=== PATIENT | female | born 1970 | race Caucasian/White ===

== ENCOUNTER 2019-03-17 07:29 | Inpatient (IN) | payer MEDICAID ==
[2019-03-15 11:46] LABS: BASOPHILS % (AUTO) 0.6 % (0-1); EOSINOPHILS # (AUTO) 0.2 X10'3 (0-0.9); EOSINOPHILS % (AUTO) 3.1 % (0-6); LYMPHOCYTES # (AUTO) 2.3 X10'3 (1.1-4.8); LYMPHOCYTES % (AUTO) 34.4 % (21-51); MEAN CORPUSCULAR HEMOGLOBIN 31.6 PG (27.0-31.0); MEAN CORPUSCULAR HGB CONC 34.2 g/dL (33.0-36.5); MEAN CORPUSCULAR VOLUME 92.4 FL (78-98); MEAN PLATELET VOLUME 7.8 FL (7.4-10.4); MONOCYTES # (AUTO) 0.4 X10'3 (0-0.9); MONOCYTES % (AUTO) 6.1 % (2-12); NEUTROPHILS # (AUTO) 3.7 X10'3 (1.8-7.7); NEUTROPHILS % (AUTO) 55.8 % (42-75); PRE OP HEMATOCRIT 37.5 % (35.0-45.0); PRE OP HEMOGLOBIN 12.8 g/dL (12.0-16.0); PRE OP PLATELET COUNT 312 X10'3 (140-440); RED BLOOD COUNT 4.06 X10'6 (4.20-5.60); RED CELL DISTRIBUTION WIDTH 12.5 % (11.5-14.5)
[2019-03-15 11:54] LABS: ALBUMIN 3.5 G/DL (3.4-5.0); ALKALINE PHOSPHATASE 76 IU/L (46-116); BLOOD UREA NITROGEN 16 MG/DL (7-18); BUN/CREATININE RATIO 24.6 (6.6-38.0); CALCIUM 9.1 MG/DL (8.5-10.1); CHLORIDE 107 MMOL/L (99-107); CREATININE 0.65 MG/DL (0.40-0.90); PRE OP ALT 35 U/L (30-65); PRE OP ANION GAP 9 (8-16); PRE OP AST 18 U/L (10-37); PRE OP BILIRUB, TOTAL 0.2 MG/DL (0.0-1.0); PRE OP GLUCOSE 114 MG/DL (70-104); PRE OP POTASSIUM 4.4 MMOL/L (3.4-5.1); PRE OP SODIUM 142 MMOL/L (135-145); TOTAL CARBON DIOXIDE 25.8 MMOL/L (24-32); eGFR > 90 ML/MIN
[2019-03-15 12:07] LABS: CLARITY,URINE SLIGHTLY CLOUDY (Clear); COLOR,URINE YELLOW (Yellow); GLUCOSE, URINE NEGATIVE (Neg); KETONES,URINE NEGATIVE (Neg); LEUKOCYTE ESTERASE ,URINE TRACE (Neg); NITRITES, URINE NEGATIVE (Neg); OCCULT BLOOD,URINE NEGATIVE (Neg); PH,URINE 5.5 (4.8-8.0); PROTEIN,URINE NEGATIVE (Neg); UROBILINOGEN,URINE 0.2 E.U/dL (0.2-1.0)
[2019-03-15 12:09] LABS: UA COLLECTION TYPE CLN CATCH MIDSTREAM
[2019-03-15 12:18] LABS: MUCUS STRANDS MANY /LPF (Neg); RBC,URINE NONE SEEN /HPF (0-2); SQUAMOUS EPITHELIAL CELL,UR MANY /LPF (FEW); WBC,URINE 0-4 /HPF (0-4)
[2019-03-15 12:19] LABS: BACTERIA,URINE 1+ /HPF (Neg)
[2019-03-17] VITALS (18 sets, daily range): BP systolic 108–158; BP diastolic 59–88
[~2019-03-17] VITALS: Ht 154.9 cm; Wt 90.7 kg
[~2019-03-17 07:29] MED LIST: ATEN-169 PO; DOCUMENT DATE & TIME OF BETA-BLOCKER PO ONE; HYDR-4383 PO
[2019-03-17] MEDS ORDERED: ringers solution, lacted 1,000 ML IV SCH ×2 (09:30→12:10)
[2019-03-17] MEDS ORDERED: famotidine 20mg tablet PO ONE (09:30)
[2019-03-17] MEDS ORDERED: clindamycin 600mg/D5W 50ml 50 ML IV ONE (09:30)
[2019-03-17] MEDS ORDERED: levoFLOXACIN-Levaquin 500mg/D5 100 ML IV ONE (09:30)
[2019-03-17] MEDS ORDERED: ceFAZolin 1000mg inj ONE (09:41)
[2019-03-17] MEDS ORDERED: albuterol 2.5 MG/3 ML nebule NEB ONE (10:00)
[2019-03-17] MEDS ORDERED: BUPIVACAINE liposomal/PF 13.3 MG/ML vial IM ONE (10:08)
[2019-03-17] MEDS ORDERED: BUPIVAcaine/PF 2.5 mg/ml (0.25%) 30ml vial ONE (10:08)
[2019-03-17] MEDS ORDERED: midazolam 2 mg/2 ml injection ONE (10:12)
[2019-03-17] MEDS ORDERED: fentaNYL /PF 50mcg/ml 5ml ampule ONE (10:12)
[2019-03-17] MEDS ORDERED: sevoflurane 250ml liquid IH ONE (10:16)
[2019-03-17] MEDS ORDERED: clindamycin phosphate 150mg/ml inj. ONE (10:32)
[2019-03-17] MEDS ORDERED: gentamicin 40 MG/1 ML inj ONE (10:58)
[2019-03-17] MEDS ORDERED: gentamicin inj 450 MG in normal saline 100ml IV soln 88.75 ML IV ONE (11:00)
[2019-03-17] MEDS ORDERED: dexamethasone sod phosphate 4mg/ml inj. ONE (11:46)
[2019-03-17] MEDS ORDERED: LIDOcaine 1%/PF 5ML 10 MG/ML VIAL ONE (11:46)
[2019-03-17] MEDS ORDERED: hydrALAZINE 20mg/ml inj. IV ONE (11:46)
[2019-03-17] MEDS ORDERED: glycopyrrolate 0.2mg/ml inj ONE (11:46)
[2019-03-17] MEDS ORDERED: propofol inj 20 ML IV ONE (11:46)
[2019-03-17] MEDS ORDERED: rocuronium 10mg/ml inj IV ONE (11:46)
[2019-03-17] MEDS ORDERED: ePHEDrine 50MG/ML INJ. ONE (11:46)
[2019-03-17] MEDS ORDERED: ondansetron/PF 4mg/2ml inj ONE (11:46)
[2019-03-17] MEDS ORDERED: neostigmine methylsulfate 1 MG/ML 10ml vial ONE (11:46)
[2019-03-17] MEDS ORDERED: labetalol 20mg/4ml (5mg/ml) syringe IV ONE (11:46)
[2019-03-17] MEDS ORDERED: morphine 10mg/ml inj. ONE (11:55)
--- NOTE | 2019-03-17 12:06 | NUR ---
Received from OR via , accompanied by Anesthesiologist DR GARCIA and report given by Anesthesiolgist. PT IS AWAKE, ALERT, MOVES EXT X 4, SKIN WARM AND PINK, C/O BURNING PAIN AT SURGICAL SITE, IV TYLENOL AND DEMEROL GIVEN FOR PAIN, SCDS, BEASLEY TO GRAVITY YELLOW/CLOUDY URINE, PIV LEFT WRIST 20G LR 100ML/HR, ABD DRESSING: ISLAND DRESSING WITH SHADOW OF DRAINAGE, ABD BINDER IN PLACE.
[2019-03-17] MEDS ORDERED: proCHLORperazine 10 MG/2 ml inj IV PRN (12:10)
[2019-03-17] MEDS ORDERED: meperidine/PF 25mg/ml syringe IV PRN ×2 (12:10)
[2019-03-17] MEDS ORDERED: ondansetron/PF 4mg/2ml inj IV PRN ×2 (12:10→12:50)
[2019-03-17] MEDS ORDERED: meperidine/PF 25mg/ml syringe ONE (12:10)
[2019-03-17] MEDS ORDERED: acetaminophen 1,000mg/100ml IV 100 ML IV SCH (12:10)
[2019-03-17] MEDS ORDERED: morphine 4 MG/ML inj SYRINge IV PRN ×2 (12:10)
[2019-03-17] MEDS: meperidine/PF 25mg/ml syringe IV PRN ×2 (12:21→12:41)
[2019-03-17] MEDS: Potassium Cl inj 20 MEQ in ringers solution, lacted 1,000 ML IV SCH ×2 (12:46→17:19)
[2019-03-17] MEDS ORDERED: CADD PCA waste documentation MC PRN (12:50)
[2019-03-17] MEDS ORDERED: insulin Lispro (HumaLOG) vial - multi-dose SQ SCH (12:50)
[2019-03-17] MEDS ORDERED: dextrose ORAL solution 15 GM/59 ML bottle PO PRN ×2 (12:50)
[2019-03-17] MEDS ORDERED: MESSAGE TO PHARMACY PO ONE (12:50)
[2019-03-17] MEDS ORDERED: naloxone 0.4 mg/ml inj IV PRN (12:50)
[2019-03-17] MEDS ORDERED: dextrose 50%-water 50ml dispensing syringe IV PRN ×2 (12:50)
[2019-03-17] MEDS ORDERED: glucagon, human recombinant 1mg kit SUBCUT PRN (12:50)
--- NOTE | 2019-03-17 12:51 | NUR ---
Received report from recovery nurse Arlene SOLANO. Awaiting arrival to room 340B.
[2019-03-17] MEDS: HYDROmorphone/NS 1 mg/ml CADD 50 ML IV SCH ×6 (13:16→23:00)
[2019-03-17] MEDS ORDERED: HYDROcodone/acetaminophen 5mg/325mg tablet PO PRN (14:05)
--- NOTE | 2019-03-17 18:15 | NUR ---
Problems reprioritized. Patient report given, questions answered & plan of care reviewed with Adin SOLANO.
--- NOTE | 2019-03-17 18:16 | NUR ---
Patient in room [facility] 340. I have received report from XIOMARA Montaño and had the opportunity to ask questions and assume patient care.
[2019-03-17] MEDS: insulin glargine (Lantus) pen - multi-dose SQ SCH (21:00)
[2019-03-18] MEDS: Melatonin 3mg tablet PO PRN ×2 (00:14→21:57)
[2019-03-18 00:47] VITALS: BP 102/57
[2019-03-18] MEDS: HYDROmorphone/NS 1 mg/ml CADD 50 ML IV SCH ×12 (01:00→23:00)
[2019-03-18] MEDS: Potassium Cl inj 20 MEQ in ringers solution, lacted 1,000 ML IV SCH ×3 (01:06→21:53)
[2019-03-18 04:12] VITALS: BP 125/76
--- NOTE | 2019-03-18 06:57 | NUR ---
Problems reprioritized. Patient report given, questions answered & plan of care reviewed with XIOMARA Long.
[2019-03-18 07:00] VITALS: BP 122/78
--- NOTE | 2019-03-18 07:03 | NUR ---
Patient in room [facility] 340. I have received report from Adin SOLANO and had the opportunity to ask questions and assume patient care.
[2019-03-18] MEDS: atenolol 50mg tablet PO SCH (07:55)
[2019-03-18] MEDS: enoxaparin 40mg/0.4ml syringe SQ SCH (07:55)
[2019-03-18] MEDS: ipratropium/albuterol 3ml nebule NEB PRN (14:35)
[2019-03-18 17:19] VITALS: BP 151/88
--- NOTE | 2019-03-18 18:25 | NUR ---
Patient in room [facility] 340. I have received report from XIOMARA JAIME and had the opportunity to ask questions and assume patient care. Addendum: 03/18/19 at 2232 by Bhakti Bass RN Amended: Links added.
--- NOTE | 2019-03-18 18:38 | NUR ---
Problems reprioritized. Patient report given, questions answered & plan of care reviewed with Myesha SOLANO.
--- NOTE | 2019-03-18 18:59 | NUR ---
NO C/O SOB ENC C&DB, HAS RT TX ORDERED PRN. PT STATES HAS SLEEP APNEA AND WEARS O2 AT NOC OCC. O2 AT BEDSIDE. PT DOES NOT WEAR CPAP. Addendum: 03/18/19 at 1905 by Bhakti Bass RN Amended: Links added.
[2019-03-18 19:00] VITALS: BP 130/72
[2019-03-18] MEDS: insulin glargine (Lantus) pen - multi-dose SQ SCH (21:00)
[2019-03-19] VITALS: BP 127/76
[2019-03-19] MEDS: HYDROmorphone/NS 1 mg/ml CADD 50 ML IV SCH ×12 (01:00→23:00)
[2019-03-19] MEDS: Potassium Cl inj 20 MEQ in ringers solution, lacted 1,000 ML IV SCH ×3 (05:11→21:21)
--- NOTE | 2019-03-19 06:08 | NUR ---
Problems reprioritized. Patient report given, questions answered & plan of care reviewed with XIOMARA Long. Addendum: 03/19/19 at 0608 by Bhakti Bass RN Amended: Links added.
--- NOTE | 2019-03-19 06:12 | NUR ---
Patient in room [facility] 340. I have received report from Myesha SOLANO and had the opportunity to ask questions and assume patient care.
[2019-03-19 06:55] VITALS: BP 135/90
[2019-03-19] MEDS: enoxaparin 40mg/0.4ml syringe SQ SCH (07:21)
[2019-03-19] MEDS: atenolol 50mg tablet PO SCH (07:22)
[2019-03-19 11:00] VITALS: BP 136/83
--- NOTE | 2019-03-19 16:52 | NUR ---
patient up and about walking many laps, stacy c/o pain Dressing changed site observed clean and dry with nikolas intact. Abdominal binder reapplied. will continue to monitor.
[2019-03-19 18:00] VITALS: BP 146/80
--- NOTE | 2019-03-19 18:08 | NUR ---
Problems reprioritized. Patient report given, questions answered & plan of care reviewed with Ganga SOLANO.
--- NOTE | 2019-03-19 18:30 | NUR ---
Patient in room [facility] 340. I have received report from Mercedes SOLANO and had the opportunity to ask questions and assume patient care.
[2019-03-19] MEDS: ipratropium/albuterol 3ml nebule NEB PRN (19:12)
[2019-03-19] MEDS: Melatonin 3mg tablet PO PRN (21:00)
[2019-03-19] MEDS: insulin glargine (Lantus) pen - multi-dose SQ SCH (21:00)
[2019-03-19] MEDS ORDERED: normal saline 1000ml 1,000 ML IV SCH (23:30)
[2019-03-20] VITALS: BP 122/82
[2019-03-20] MEDS: HYDROmorphone/NS 1 mg/ml CADD 50 ML IV SCH ×4 (01:00→07:00)
[2019-03-20 06:00] VITALS: BP 150/80
--- NOTE | 2019-03-20 06:30 | NUR ---
Patient in room [facility] 355. I have received report from Ganga SOLANO and had the opportunity to ask questions and assume patient care.
--- NOTE | 2019-03-20 06:57 | NUR ---
Problems reprioritized. Patient report given, questions answered & plan of care reviewed with Geovanna SOLANO.
[2019-03-20] MEDS: enoxaparin 40mg/0.4ml syringe SQ SCH (08:30)
[2019-03-20 08:31] VITALS: BP_SYST 116
[2019-03-20] MEDS: atenolol 50mg tablet PO SCH (08:31)
[2019-03-20] MEDS ORDERED: oxyCODONE/APAP 10/325mg tablet PO PRN (08:55)
[2019-03-20] MEDS ORDERED: PER10325T PO (09:00)
== END 2019-03-20 10:42 | disposition home or self-care (01) | DRG 793 ==
LOC: PAS IN 07:29 → EDSTATUS 11:30 → SUR 3N 13:44
PROVIDERS: ADMIT Surgery; ATTEND Surgery
PROC: 0WPF0JZ Removal of Synthetic Substitute from Abdominal Wall, Open Approach (ICD-10-PCS; 2019-03-17)
PROC: 0WUF0JZ Supplement Abdominal Wall with Synthetic Substitute, Open Approach (ICD-10-PCS; principal; 2019-03-17 10:12)
DX: T85.528A Displacement of other gastrointestinal prosthetic devices, implants and grafts, initial encounter (principal); K43.0 Incisional hernia with obstruction, without gangrene; E78.5 Hyperlipidemia, unspecified; I10 Essential (primary) hypertension; K66.0 Peritoneal adhesions (postprocedural) (postinfection); Y83.8 Other surgical procedures as the cause of abnormal reaction of the patient, or of later complication, without mention of misadventure at the time of the procedure; G89.29 Other chronic pain; M62.00 Separation of muscle (nontraumatic), unspecified site; Z91.030 Bee allergy status; Z85.43 Personal history of malignant neoplasm of ovary; Z90.710 Acquired absence of both cervix and uterus; Z90.49 Acquired absence of other specified parts of digestive tract; Z87.891 Personal history of nicotine dependence; Y92.89 Other specified places as the place of occurrence of the external cause
CPT/HCPCS: 36415; 80053; 81001; 82948; 83036; 85025; 87081; 93005; 94640; 94760; A4618; A6258; A7000; C1758; C9290; G0378; J0131; J0360; J0690; J1100; J1170; J1580; J1650; J1815; J1956; J2175; J2250; J2270; J2405; J2704; J2710; J3010; J3480; J3490; J7030; J7120

== ENCOUNTER 2019-07-22 10:20 | Inpatient (IN) | payer MEDICAID ==
[2019-07-22] VITALS (9 sets, daily range): BP systolic 95–133; BP diastolic 42–68
[~2019-07-22] VITALS: Ht 154.9 cm; Wt 86.4 kg
[~2019-07-22 10:20] MED LIST changes: -DOCUMENT DATE & TIME OF BETA-BLOCKER PO ONE; -HYDR-4383 PO
[2019-07-22] MEDS ORDERED: metroNIDAZOLE-Flagyl 500mg/NS 100 ML IV ONE (11:50)
[2019-07-22] MEDS ORDERED: levoFLOXACIN-Levaquin 750MG/D5 150 ML IV ONE (11:50)
[2019-07-22] MEDS ORDERED: vancomycin/NS 1 GM ADD-VANTAGE 250 ML IV ONE (11:50)
[2019-07-22] MEDS ORDERED: HYDROmorphone inj. 0.5 MG/0.5 ML DISP.SYRIN IV ONE (12:15)
[2019-07-22 12:25] LABS: BASOPHILS % (AUTO) 0.2 % (0-1); EOSINOPHILS % (AUTO) 0.2 % (0-6); HEMATOCRIT 31.5 % (35.0-45.0); HEMOGLOBIN 10.4 g/dl (12.0-16.0); LYMPHOCYTES % (AUTO) 6.7 % (21-51); MEAN CORPUSCULAR HEMOGLOBIN 29.7 PG (27.0-31.0); MEAN CORPUSCULAR VOLUME 89.9 FL (78-98); MEAN PLATELET VOLUME 7.7 FL (7.4-10.4); MONOCYTES # (AUTO) 0.7 X10'3 (0-0.9); MONOCYTES % (AUTO) 4.5 % (2-12); NEUTROPHILS # (AUTO) 12.9 X10'3 (1.8-7.7); NEUTROPHILS % (AUTO) 88.4 % (42-75); PLATELET COUNT 592 X10'3 (140-440); RED CELL DISTRIBUTION WIDTH 14.2 % (11.5-14.5); WHITE BLOOD COUNT 14.5 X10'3 (4.5-11.0)
[2019-07-22 12:28] LABS: CLARITY,URINE SLIGHTLY CLOUDY (Clear); GLUCOSE, URINE NEGATIVE (Neg); KETONES,URINE TRACE mg/dl (Neg); LEUKOCYTE ESTERASE ,URINE TRACE (Neg); NITRITES, URINE NEGATIVE (Neg); OCCULT BLOOD,URINE NEGATIVE (Neg); PH,URINE 6.5 (4.8-8.0); PROTEIN,URINE NEGATIVE (Neg); UROBILINOGEN,URINE >=8.0 E.U/dL (0.2-1.0)
[2019-07-22 12:29] LABS: COLOR,URINE DARK YELLOW (Yellow); UA COLLECTION TYPE CLN CATCH MIDSTREAM
[2019-07-22 12:42] LABS: PARTIAL THROMBOPLASTIN TIME 23 SECONDS (22-32)
[2019-07-22 12:43] LABS: ALANINE AMINOTRANSFERASE 32 U/L (12-78); ALBUMIN 1.4 G/DL (3.4-5.0); ALBUMIN/GLOBULIN RATIO 0.3 (1.1-1.5); ALKALINE PHOSPHATASE 144 IU/L (46-116); ANION GAP 10 (8-16); ASPARTATE AMINO TRANSFERASE 32 U/L (10-37); BILIRUBIN,TOTAL 0.5 MG/DL (0.1-1.0); BLOOD UREA NITROGEN 14 MG/DL (7-18); BUN/CREATININE RATIO 20.3 (6.6-38.0); CALCIUM 8.1 MG/DL (8.5-10.1); CHLORIDE 101 MMOL/L (99-107); CREATININE 0.69 MG/DL (0.40-0.90); GLUCOSE 102 MG/DL (70-104); MAGNESIUM 2.1 MG/DL (1.5-2.4); POTASSIUM 3.6 MMOL/L (3.5-5.1); SODIUM 136 MMOL/L (135-145); TOTAL CARBON DIOXIDE 25.4 MMOL/L (24-32); TOTAL PROTEIN 6.2 G/DL (6.4-8.2); eGFR 90 ML/MIN
[2019-07-22 12:44] LABS: MUCUS STRANDS FEW /LPF (Neg); SQUAMOUS EPITHELIAL CELL,UR MANY /LPF (FEW); TRANSITIONAL EPI CELLS,URINE FEW /HPF
[2019-07-22 12:45] LABS: BACTERIA,URINE 1+ /HPF (Neg); RBC,URINE 0-2 /HPF (0-2); WBC,URINE 0-4 /HPF (0-4); YEAST FEW /HPF (NEGATIVE)
[2019-07-22 13:01] LABS: PLATELET ESTIMATE INCREASED; TOTAL CELLS COUNTED 100; TOXIC GRANULATION 1+
[2019-07-22 13:02] LABS: LARGE PLATELETS FEW
[2019-07-22] MEDS ORDERED: FURO40TA4 PO (13:24)
[2019-07-22] MEDS ORDERED: ATEN100T6 PO (13:24)
[2019-07-22] MEDS ORDERED: POTA20TA19 PO (13:24)
[2019-07-22] MEDS ORDERED: MULT-933 PO (13:34)
[2019-07-22] MEDS ORDERED: CYAN-51 PO (13:34)
[2019-07-22] MEDS ORDERED: magnesium hydroxide 30ml (MOM) UD suspension PO PRN (14:10)
[2019-07-22] MEDS ORDERED: ondansetron/PF 4mg/2ml inj IV PRN ×2 (14:10→18:50)
[2019-07-22] MEDS ORDERED: acetaminophen 325mg tablet PO PRN (14:10)
[2019-07-22] MEDS ORDERED: HYDROcodone/acetaminophen 10/325mg tab PO PRN (14:10)
[2019-07-22] MEDS ORDERED: iohexol 300mg/ml 100ml inj. ONE (14:59)
[2019-07-22] MEDS: HYDROmorphone inj. 0.5 MG/0.5 ML DISP.SYRIN IV PRN ×3 (17:01→21:58)
[2019-07-22] MEDS: normal saline 1000ml 1,000 ML IV SCH (17:01)
--- NOTE | 2019-07-22 18:30 | NUR ---
Patient in room [facility] 341. I have received report from Tex RN and Geovanna RN and had the opportunity to ask questions and assume patient care.
[2019-07-22] MEDS ORDERED: ringers solution, lacted 1,000 ML IV SCH (18:48)
[2019-07-22] MEDS ORDERED: meperidine/PF 25mg/ml syringe IV PRN ×3 (18:50)
[2019-07-22] MEDS ORDERED: morphine 4 MG/ML inj SYRINge IV PRN ×2 (18:50)
[2019-07-22] MEDS ORDERED: proCHLORperazine 10 MG/2 ml inj IV PRN (18:50)
[2019-07-22] MEDS ORDERED: sevoflurane 250ml liquid IH ONE (18:57)
[2019-07-22] MEDS ORDERED: fentaNYL /PF 50mcg/ml 5ml ampule ONE (19:01)
[2019-07-22] MEDS ORDERED: midazolam 2 mg/2 ml injection ONE (19:01)
--- NOTE | 2019-07-22 19:08 | NUR ---
Problems reprioritized. Patient report given, questions answered & plan of care reviewed with XIOMARA العلي.
[2019-07-22] MEDS ORDERED: furosemide 40mg tablet PO PRN (19:35)
[2019-07-22] MEDS ORDERED: potassium Cl 20 mEq SR tablet PO PRN (19:35)
[2019-07-22] MEDS ORDERED: rocuronium 10mg/ml inj IV ONE (19:51)
[2019-07-22] MEDS ORDERED: ondansetron/PF 4mg/2ml inj ONE (19:51)
[2019-07-22] MEDS ORDERED: sugammadex 200mg/2ml injection IV ONE (19:51)
[2019-07-22] MEDS ORDERED: LIDOcaine 2% (20mg/ml) 5ml vial ONE (19:51)
[2019-07-22] MEDS ORDERED: propofol inj 20 ML IV ONE (19:51)
[2019-07-22] MEDS ORDERED: cefepime 2g/NS 100ml ADVANTAGE 100 ML IV SCH (20:00)
[2019-07-22] MEDS: heparin, porcine 5000 units/ml vial SQ SCH (20:00)
--- NOTE | 2019-07-22 20:28 | NUR ---
Received from OR via BED, accompanied by Anesthesiologist DR GARCIA and report given by Anesthesiologist. PT AWAKE, PAINFUL, ABDOMEN W/WOUND VAC X 2 125MMHG LCS, NO DRAINAGE IN TUBING, BEASLEY CATHETER TO GRAVITY DRAINAGE W/DARK YELLOW URINE IN TUBING. Addendum: 07/22/19 at 2036 by Concepción Morfin RN Amended: Links added.
[2019-07-22] MEDS ORDERED: ipratropium/albuterol 3ml nebule NEB PRN (20:35)
[2019-07-22] MEDS ORDERED: ipratropium/albuterol 3ml nebule ONE (20:41)
[2019-07-22] MEDS: HYDROmorphone/NS 1 mg/ml CADD 50 ML IV SCH ×3 (20:57→23:00)
[2019-07-22] MEDS: VANCOmycin 1250MG/NS 250ml Bag 250 ML IV SCH (21:00)
--- NOTE | 2019-07-22 21:08 | NUR ---
Report called to receiving nurse. Transferred via BED ON CM, PT HAD NO Belongings, RECEIVING RN AT BEDSIDE TO RECEIVE PT, ATTACHED TO MONITOR. Special Issues communicated to receiving nurse. YES, Addendum: 07/22/19 at 2117 by Concepción Morfin RN Amended: Links added.
--- NOTE | 2019-07-22 21:17 | NUR ---
assumed care from catalyst recovery operator Jane no questions or concerns after assuming care
--- NOTE | 2019-07-22 21:18 | NUR ---
patient arrived to cicu bed 2006 at 2103 from Concepción SOLANO
[2019-07-22] MEDS: metroNIDAZOLE 500mg tablet PO SCH (21:59)
--- NOTE | 2019-07-22 22:37 | NUR ---
patient in bed covers on eyes closed rr even un labored no observable s/s of acute stress at this time will continue to monitor
[2019-07-23] VITALS (12 sets, daily range): BP systolic 92–109; BP diastolic 44–58
[2019-07-23] MEDS: normal saline 1000ml 1,000 ML IV SCH ×2 (00:25→13:04)
--- NOTE | 2019-07-23 00:29 | NUR ---
patient in bed covers on rr even un labored no observable s/s of acute stress at this time will continue to monitor
[2019-07-23] MEDS: HYDROmorphone/NS 1 mg/ml CADD 50 ML IV SCH ×9 (01:00→17:00)
[2019-07-23] MEDS: clindamycin 600mg/D5W 50ml 50 ML IV SCH ×4 (02:01→19:41)
--- NOTE | 2019-07-23 02:23 | NUR ---
patient in bed eyes closed rr even un labored no observable s/s of acute stress at this time will continue to monitor
--- NOTE | 2019-07-23 03:53 | NUR ---
patient requested me to call her Wallace # [phone], i was able to speak with Wallace and he verbalized he will be in "around 8 o'clock." verbalized this to the patient
[2019-07-23] MEDS: VANCOmycin 1250MG/NS 250ml Bag 250 ML IV SCH ×3 (05:14→20:18)
[2019-07-23 06:18] LABS: ANION GAP 11 (8-16); BLOOD UREA NITROGEN 11 MG/DL (7-18); BUN/CREATININE RATIO 19.6 (6.6-38.0); CALCIUM 7.6 MG/DL (8.5-10.1); CHLORIDE 106 MMOL/L (99-107); CREATININE 0.56 MG/DL (0.40-0.90); GLUCOSE 110 MG/DL (70-104); POTASSIUM 3.9 MMOL/L (3.5-5.1); SODIUM 138 MMOL/L (135-145); TOTAL CARBON DIOXIDE 20.7 MMOL/L (24-32); eGFR > 90 ML/MIN
--- NOTE | 2019-07-23 06:20 | NUR ---
SBAR TO RAPHAEL SOLANO NO QUESTIONS OR CONCERNS AFTER ASSUMING CARE
[2019-07-23 06:25] LABS: BASOPHILS % (AUTO) 0.2 % (0-1); EOSINOPHILS % (AUTO) 0 % (0-6); HEMATOCRIT 27.7 % (35.0-45.0); HEMOGLOBIN 9.5 g/dl (12.0-16.0); LYMPHOCYTES # (AUTO) 0.8 X10'3 (1.1-4.8); LYMPHOCYTES % (AUTO) 7.3 % (21-51); MEAN CORPUSCULAR HEMOGLOBIN 30.3 PG (27.0-31.0); MEAN CORPUSCULAR HGB CONC 34.1 g/dL (33.0-36.5); MEAN CORPUSCULAR VOLUME 88.9 FL (78-98); MEAN PLATELET VOLUME 8.1 FL (7.4-10.4); MONOCYTES # (AUTO) 0.5 X10'3 (0-0.9); MONOCYTES % (AUTO) 4.6 % (2-12); NEUTROPHILS # (AUTO) 9.3 X10'3 (1.8-7.7); NEUTROPHILS % (AUTO) 87.9 % (42-75); PLATELET COUNT 530 X10'3 (140-440); RED BLOOD COUNT 3.12 X10'6 (4.20-5.60); RED CELL DISTRIBUTION WIDTH 14.2 % (11.5-14.5); WHITE BLOOD COUNT 10.6 X10'3 (4.5-11.0)
--- NOTE | 2019-07-23 06:30 | NUR ---
Patient in room CICU 2006. I have received report from Kartik Andrade RN and had the opportunity to ask questions and assume patient care.
[2019-07-23] MEDS: atenolol 50mg tablet PO SCH (08:40)
[2019-07-23] MEDS: multivitamins, therapeutics tablet PO SCH (08:40)
[2019-07-23] MEDS: metroNIDAZOLE 500mg tablet PO SCH ×3 (08:40→22:27)
[2019-07-23] MEDS: cyanocobalamin 500mcg tablet PO SCH (08:40)
[2019-07-23] MEDS: heparin, porcine 5000 units/ml vial SQ SCH ×2 (08:41→19:45)
[2019-07-23] MEDS: mag hydrox/Alum hydrox/simeth 30ml oral suspension PO PRN ×2 (08:51→14:47)
[2019-07-23] MEDS: levoFLOXACIN-Levaquin 750MG/D5 150 ML IV SCH (09:29)
--- NOTE | 2019-07-23 10:00 | NUR ---
Upon reviewing the belongings for patient, patient states she cut off her pants and shirt and threw them away along with her slippers. I asked her about other belongings and she states that she only has a red sweatshirt and cell phone. Searched all drawers in room. Attempted to contact , Wallace, regarding note stating patient had her wallet. Left a message. Patient denies having wallet/purse.
--- NOTE | 2019-07-23 10:02 | NUR ---
Attempted to call report on patient. Spoke with Swathi, flame annealing machine setter. She has not assigned a nurse and will get back to me when she does.
--- NOTE | 2019-07-23 10:18 | NUR ---
Report given Alesia Mchugh.
--- NOTE | 2019-07-23 10:33 | NUR ---
Patient transferred to room 349B. Alesia Land RN present. Patient offers no complaints.
[2019-07-23] MEDS: HYDROmorphone inj. 0.5 MG/0.5 ML DISP.SYRIN IV PRN (11:09)
[2019-07-23] MEDS ORDERED: VANCOMYCIN LEVEL IV ONE ×2 (11:30→19:30)
--- NOTE | 2019-07-23 11:46 | NUR ---
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 Hx recurrent hernia's, gastric bypass, and smoking. Is receiving MVI and B12. Placed on clear liquids post-op refusing first meal today w/ abdominal pain noted. LBM 07/21. Will monitor for additional protein needs and PO diet tolerance as diet advances post-op. Rec: 1. advance diet per MD to regular 2. monitor for ONS needs as PO diet advances 3. bowel care as needed 4. MVI/B12 w/ gastric bypass surgery hx; consider sublingual B12 IF jamin-en--y per MD 5. wt per rx Addendum: 07/23/19 at [address] Amended: Links added.
--- NOTE | 2019-07-23 11:46 | NUR ---
Spoke to Carla in wound care she does have patient on wound care list and they will make her a priority on Friday to change wound vac.
--- NOTE | 2019-07-23 12:04 | NUR ---
Per Dr Crooks ok to have wound vac changed on Friday it was just put on at around 2300 last night.
--- NOTE | 2019-07-23 14:30 | NUR ---
WOUND VAC EDUCATION PROVIDED BY WOUND CARE 1. Patient instructed to call the Wound Center or their Home Health Agency immediately if: * They notice a change in the color or amount of the fluid in the canister. * Their wound looks more red than usual or has a foul smell. * The skin around their wound looks reddened or irritated. * The dressing feels loose or appears to be loose. * They experience any increase or changes in their pain. * The alarm will not turn off. 2. Patient instructed that they should not be disconnected from suction for more than 2 hours at a time. * If they are not able to get the suction back on, they need to remove the dressing and take all of the foam out of the wound. * Then moisten sterile gauze with normal saline and place on/in the wound. * Change the dressing once a day until arrangements have been made to replace the wound vac dressing. 3. Patient instructed to turn the wound vac machine OFF and call 911 or go to the ED immediately if their canister fills rapidly with blood. 4. If any of these occur while in the hospital tell a nurse immediately. Addendum: 07/23/19 at 1430 by Heladio Loyd RN Amended: Links added.
--- NOTE | 2019-07-23 18:30 | NUR ---
shift change report given by Alesia SOLANO; no c/o's of pain or request offered at this time
--- NOTE | 2019-07-23 18:48 | NUR ---
Problems reprioritized. Patient report given, questions answered & plan of care reviewed with Pat RN.
--- NOTE | 2019-07-23 19:30 | NUR ---
Dr Bloom in earlier & aware of swelling below lower abd wound vac Addendum: 07/24/19 at 0124 by Saray Laguna RN Amended: Links added.
[2019-07-23] MEDS: oxyCODONE/APAP 10/325mg tablet PO PRN (19:41)
[2019-07-23] MEDS: lactobacillus rhamnosus 10,000 MMU CELLS/CAPSULE PO SCH (19:43)
[2019-07-23] MEDS ORDERED: CADD PCA waste documentation MC SCH (20:05)
[2019-07-24] VITALS: BP 97/50
[2019-07-24] MEDS: oxyCODONE/APAP 10/325mg tablet PO PRN ×6 (00:04→23:22)
[2019-07-24] MEDS: clindamycin 600mg/D5W 50ml 50 ML IV SCH ×4 (02:03→20:45)
[2019-07-24] MEDS: VANCOmycin 1250MG/NS 250ml Bag 250 ML IV SCH (03:56)
[2019-07-24] MEDS: mag hydrox/Alum hydrox/simeth 30ml oral suspension PO PRN ×2 (04:03→17:37)
[2019-07-24 05:17] LABS: BASOPHILS % (AUTO) 0 % (0-1); EOSINOPHILS % (AUTO) 0.1 % (0-6); HEMOGLOBIN 8.2 g/dl (12.0-16.0); LYMPHOCYTES % (AUTO) 9.3 % (21-51); MEAN CORPUSCULAR HEMOGLOBIN 29.8 PG (27.0-31.0); MEAN CORPUSCULAR VOLUME 90.3 FL (78-98); MEAN PLATELET VOLUME 7.7 FL (7.4-10.4); MONOCYTES # (AUTO) 0.7 X10'3 (0-0.9); NEUTROPHILS # (AUTO) 9.5 X10'3 (1.8-7.7); NEUTROPHILS % (AUTO) 84.6 % (42-75); PLATELET COUNT 510 X10'3 (140-440); RED BLOOD COUNT 2.77 X10'6 (4.20-5.60); RED CELL DISTRIBUTION WIDTH 14.2 % (11.5-14.5); WHITE BLOOD COUNT 11.2 X10'3 (4.5-11.0)
[2019-07-24 05:32] LABS: ANION GAP 10 (8-16); BLOOD UREA NITROGEN 9 MG/DL (7-18); BUN/CREATININE RATIO 16.4 (6.6-38.0); CALCIUM 7.5 MG/DL (8.5-10.1); CHLORIDE 107 MMOL/L (99-107); CREATININE 0.55 MG/DL (0.40-0.90); GLUCOSE 107 MG/DL (70-104); POTASSIUM 3.8 MMOL/L (3.5-5.1); SODIUM 139 MMOL/L (135-145); TOTAL CARBON DIOXIDE 22.5 MMOL/L (24-32); eGFR > 90 ML/MIN
--- NOTE | 2019-07-24 06:30 | NUR ---
checked q1hr; slept at intervals with resp even and unlabored; pt reports percocet very effective in controlling pain; no further changes from earlier notes; report given to XIOMARA Ramirez
--- NOTE | 2019-07-24 06:42 | NUR ---
Problems reprioritized. Patient report given, questions answered & plan of care reviewed with XIOMARA Egan. Addendum: 07/24/19 at 0642 by James Clark RN Patient in room [facility] 349. I have received report from XIOMARA Egan and had the opportunity to ask questions and assume patient care.
[2019-07-24 07:00] VITALS: BP 119/70
[2019-07-24] MEDS: heparin, porcine 5000 units/ml vial SQ SCH ×2 (07:10→20:46)
[2019-07-24] MEDS: cyanocobalamin 500mcg tablet PO SCH (07:10)
[2019-07-24] MEDS: metroNIDAZOLE 500mg tablet PO SCH ×3 (07:10→20:46)
[2019-07-24] MEDS: lactobacillus rhamnosus 10,000 MMU CELLS/CAPSULE PO SCH ×2 (07:10→20:46)
[2019-07-24] MEDS: multivitamins, therapeutics tablet PO SCH (07:10)
[2019-07-24] MEDS: atenolol 50mg tablet PO SCH (07:11)
[2019-07-24] MEDS: levoFLOXACIN-Levaquin 750MG/D5 150 ML IV SCH (07:48)
[2019-07-24] MEDS: normal saline 1000ml 1,000 ML IV SCH ×2 (07:50→14:52)
[2019-07-24 11:00] VITALS: BP 115/4
[2019-07-24] MEDS: HYDROmorphone inj. 0.5 MG/0.5 ML DISP.SYRIN IV PRN ×3 (11:34→20:46)
--- NOTE | 2019-07-24 13:50 | NUR ---
PT DOES NOT WANT TO AMBULATE
--- NOTE | 2019-07-24 15:00 | NUR ---
Patient tolerated dc of mallory catheter well. No complaints.
[2019-07-24 18:00] VITALS: BP 116/70
--- NOTE | 2019-07-24 18:26 | NUR ---
Problems reprioritized. Patient report given, questions answered & plan of care reviewed with XIOMARA SAHA.
--- NOTE | 2019-07-24 18:37 | NUR ---
Patient in room [facility] 349. I have received report from ANNIE PEREZ RN and had the opportunity to ask questions and assume patient care. Patient is resting and shows no sign of distress.
[2019-07-25] VITALS: BP 89/45
[2019-07-25] MEDS: clindamycin 600mg/D5W 50ml 50 ML IV SCH ×4 (02:15→19:54)
[2019-07-25] MEDS: oxyCODONE/APAP 10/325mg tablet PO PRN ×4 (03:41→19:51)
[2019-07-25 04:45] LABS: ANION GAP 10 (8-16); BASOPHILS % (AUTO) 0.1 % (0-1); BLOOD UREA NITROGEN 10 MG/DL (7-18); BUN/CREATININE RATIO 16.9 (6.6-38.0); CHLORIDE 107 MMOL/L (99-107); CREATININE 0.59 MG/DL (0.40-0.90); EOSINOPHILS % (AUTO) 0.1 % (0-6); GLUCOSE 99 MG/DL (70-104); HEMATOCRIT 25.2 % (35.0-45.0); HEMOGLOBIN 8.7 g/dl (12.0-16.0); LYMPHOCYTES # (AUTO) 1.1 X10'3 (1.1-4.8); LYMPHOCYTES % (AUTO) 9.2 % (21-51); MEAN CORPUSCULAR HEMOGLOBIN 31.1 PG (27.0-31.0); MEAN CORPUSCULAR HGB CONC 34.3 g/dL (33.0-36.5); MEAN CORPUSCULAR VOLUME 90.4 FL (78-98); MEAN PLATELET VOLUME 7.6 FL (7.4-10.4); MONOCYTES # (AUTO) 0.5 X10'3 (0-0.9); MONOCYTES % (AUTO) 4.3 % (2-12); NEUTROPHILS # (AUTO) 10.8 X10'3 (1.8-7.7); NEUTROPHILS % (AUTO) 86.3 % (42-75); PLATELET COUNT 599 X10'3 (140-440); RED BLOOD COUNT 2.79 X10'6 (4.20-5.60); RED CELL DISTRIBUTION WIDTH 14.2 % (11.5-14.5); SODIUM 140 MMOL/L (135-145); TOTAL CARBON DIOXIDE 23.5 MMOL/L (24-32); WHITE BLOOD COUNT 12.5 X10'3 (4.5-11.0); eGFR > 90 ML/MIN
--- NOTE | 2019-07-25 06:32 | NUR ---
Problems reprioritized. Patient report given, questions answered & plan of care reviewed with Heena RN. Patient is resting.
[2019-07-25 06:46] VITALS: BP 121/70
[2019-07-25] MEDS: lactobacillus rhamnosus 10,000 MMU CELLS/CAPSULE PO SCH ×2 (07:10→19:51)
[2019-07-25] MEDS: multivitamins, therapeutics tablet PO SCH (07:10)
[2019-07-25] MEDS: cyanocobalamin 500mcg tablet PO SCH (07:11)
[2019-07-25] MEDS: metroNIDAZOLE 500mg tablet PO SCH ×3 (07:11→21:53)
[2019-07-25] MEDS: HYDROmorphone inj. 0.5 MG/0.5 ML DISP.SYRIN IV PRN ×4 (07:11→21:53)
[2019-07-25] MEDS: heparin, porcine 5000 units/ml vial SQ SCH ×2 (07:14→19:52)
[2019-07-25] MEDS: atenolol 50mg tablet PO SCH (07:21)
[2019-07-25] MEDS: mag hydrox/Alum hydrox/simeth 30ml oral suspension PO PRN (07:21)
[2019-07-25] MEDS: levoFLOXACIN 750MG TABLET PO SCH (11:12)
[2019-07-25] MEDS: normal saline 1000ml 1,000 ML IV SCH (11:16)
[2019-07-25 11:45] VITALS: BP 137/63
--- NOTE | 2019-07-25 18:14 | NUR ---
Problems reprioritized. Patient report given, questions answered & plan of care reviewed with Magali SOLANO.
--- NOTE | 2019-07-25 18:44 | NUR ---
Patient in room [facility] 349. I have received report from Heena SOLANO and had the opportunity to ask questions and assume patient care. Pt laying in the chair, no signs of distress. Wound Vac @ 125 and marked. O2 @ 1L via N/C. Will continue ro monitor.
[2019-07-25] MEDS ORDERED: VANCOMYCIN LEVEL IV ONE (19:30)
[2019-07-25 20:00] VITALS: BP 124/69
[2019-07-25] MEDS ORDERED: furosemide 10 MG/1 ML 10ml inj IV ONE (20:55)
[2019-07-25] MEDS: vancomycin/NS 1 GM ADD-VANTAGE 250 ML IV SCH (22:20)
[2019-07-26] VITALS: BP 108/60
[2019-07-26] MEDS: oxyCODONE/APAP 10/325mg tablet PO PRN ×5 (00:27→23:29)
[2019-07-26] MEDS: clindamycin 600mg/D5W 50ml 50 ML IV SCH ×2 (01:47→07:30)
[2019-07-26] MEDS: HYDROmorphone inj. 0.5 MG/0.5 ML DISP.SYRIN IV PRN ×5 (01:53→20:50)
[2019-07-26] MEDS: vancomycin/NS 1 GM ADD-VANTAGE 250 ML IV SCH (05:05)
--- NOTE | 2019-07-26 06:34 | NUR ---
Problems reprioritized. Patient report given, questions answered & plan of care reviewed with Heena SOLANO.
--- NOTE | 2019-07-26 06:37 | NUR ---
Patient in room [facility] 349. I have received report from Magali SOLANO and had the opportunity to ask questions and assume patient care.
[2019-07-26 07:00] VITALS: BP 115/68
[2019-07-26] MEDS: lactobacillus rhamnosus 10,000 MMU CELLS/CAPSULE PO SCH ×2 (07:30→20:47)
[2019-07-26] MEDS: multivitamins, therapeutics tablet PO SCH (07:30)
[2019-07-26] MEDS: metroNIDAZOLE 500mg tablet PO SCH (07:30)
[2019-07-26] MEDS: cyanocobalamin 500mcg tablet PO SCH (07:30)
[2019-07-26] MEDS: atenolol 50mg tablet PO SCH (07:30)
[2019-07-26] MEDS: heparin, porcine 5000 units/ml vial SQ SCH ×2 (07:32→20:56)
[2019-07-26 08:53] LABS: BASOPHILS % (AUTO) 0 % (0-1); EOSINOPHILS % (AUTO) 0.1 % (0-6); HEMATOCRIT 27.2 % (35.0-45.0); LYMPHOCYTES % (AUTO) 8.4 % (21-51); MEAN CORPUSCULAR HEMOGLOBIN 29.3 PG (27.0-31.0); MEAN CORPUSCULAR HGB CONC 33.2 g/dL (33.0-36.5); MEAN CORPUSCULAR VOLUME 88.5 FL (78-98); MEAN PLATELET VOLUME 7.5 FL (7.4-10.4); MONOCYTES # (AUTO) 0.6 X10'3 (0-0.9); MONOCYTES % (AUTO) 5.3 % (2-12); NEUTROPHILS # (AUTO) 9.9 X10'3 (1.8-7.7); NEUTROPHILS % (AUTO) 86.2 % (42-75); PLATELET COUNT 640 X10'3 (140-440); RED BLOOD COUNT 3.07 X10'6 (4.20-5.60); RED CELL DISTRIBUTION WIDTH 14.4 % (11.5-14.5); WHITE BLOOD COUNT 11.5 X10'3 (4.5-11.0)
[2019-07-26 08:56] LABS: ALBUMIN 1.2 G/DL (3.4-5.0); ANION GAP 11 (8-16); BLOOD UREA NITROGEN 8 MG/DL (7-18); BUN/CREATININE RATIO 15.1 (6.6-38.0); CALCIUM 8.3 MG/DL (8.5-10.1); CHLORIDE 107 MMOL/L (99-107); CREATININE 0.53 MG/DL (0.40-0.90); GLUCOSE 117 MG/DL (70-104); POTASSIUM 3.6 MMOL/L (3.5-5.1); SODIUM 140 MMOL/L (135-145); TOTAL CARBON DIOXIDE 21.9 MMOL/L (24-32); eGFR > 90 ML/MIN
[2019-07-26] MEDS: levoFLOXACIN 750MG TABLET PO SCH (09:58)
[2019-07-26 10:32] LABS: PLATELET ESTIMATE INCREASED; TOTAL CELLS COUNTED 100; TOXIC GRANULATION 2+
[2019-07-26 11:00] VITALS: BP 131/74
--- NOTE | 2019-07-26 11:44 | NUR ---
PETROS RN in to see patient and change WV dressing. Patient has been premedicated for pain.
[2019-07-26] MEDS ORDERED: HYDROmorphone inj. 0.5 MG/0.5 ML DISP.SYRIN IM STA (11:59)
--- NOTE | 2019-07-26 12:48 | NUR ---
WV changed, tissue present. Recommended by PETROS RN to repeat tissue removal. Will put patient NPO at midnight tonight in preparation for surgical procedure tomorrow morning by Dr. Crooks. Patient tolerated well. Dilaudid 0.5 mg IVP ONCE given, order was entered as IM but was NOT given IM. Soma given pre WV change as well.
--- NOTE | 2019-07-26 13:09 | NUR ---
Patient in room [facility] 349. I have received report from Heena SOLANO and had the opportunity to ask questions and assume patient care.
--- NOTE | 2019-07-26 13:58 | NUR ---
Notified Dr. Walls emu farmer stated patient has necrotic tissue that could use debridement. Patient will be put NPO at midnight in preparation for surgery tomorrow morning.
--- NOTE | 2019-07-26 14:07 | NUR ---
WOUND VAC EDUCATION PROVIDED BY WOUND CARE 1. Patient instructed to call the Wound Center or their Home Health Agency immediately if: * They notice a change in the color or amount of the fluid in the canister. * Their wound looks more red than usual or has a foul smell. * The skin around their wound looks reddened or irritated. * The dressing feels loose or appears to be loose. * They experience any increase or changes in their pain. * The alarm will not turn off. 2. Patient instructed that they should not be disconnected from suction for more than 2 hours at a time. * If they are not able to get the suction back on, they need to remove the dressing and take all of the foam out of the wound. * Then moisten sterile gauze with normal saline and place on/in the wound. * Change the dressing once a day until arrangements have been made to replace the wound vac dressing. 3. Patient instructed to turn the wound vac machine OFF and call 911 or go to the ED immediately if their canister fills rapidly with blood. 4. If any of these occur while in the hospital tell a nurse immediately. PRESSURE ULCER EDUCATION: DEFINITION: A pressure ulcer is an area of skin that breaks down when you stay in one position too long. The constant pressure against the skin reduces the blood flow to that area and the affected tissue dies. CAUSES: "Being bedridden or in a wheelchair "Fragile skin "Having a chronic condition, such as diabetes or vascular disease "Inability to move certain parts of your body without assistance "Older age "Incontinence of urine or stool SYMPTOMS: "A reddened area that DOES NOT turn white when pressed on - this can be the beginning of a pressure ulcer "A blister, deep sore or a crater - these can be advanced pressure ulcers FIRST AID: "Relieve the pressure on this area "Keep the area clean and dry "Call your primary doctor if you see any of the above symptoms "DO NOT massage the area "DO NOT use a donut shaped or ring shaped pillow- these actually interfere with the blood flow and cause complications PREVENTION: "Check for pressure ulcers everyday "Change position at least every two hours to relieve pressure "Use items that help relieve pressure- pillows, sheepskin, foam padding, and powders. "Keep skin clean and dry "Eat healthy well balanced meals "Exercise daily IF YOU SEE ANY OF THESE SYMPTOMS WHILE IN THE HOSPITAL - TELL YOUR NURSE IMMEDIATELY. IF YOU SEE ANY OF THESE SYMPTOMS WHILE AT HOME OR HAVE ANY QUESTIONS OR CONCERNS ABOUT PRESSURE ULCERS - CALL YOUR PRIMARY DOCTOR IMMEDIATELY. Addendum: 07/26/19 at 1407 by Heladio Loyd RN Amended: Links added.
[2019-07-26] MEDS: normal saline 1000ml 1,000 ML IV SCH (15:03)
--- NOTE | 2019-07-26 16:09 | NUR ---
Reassessment: Pt currently on full liquid, pt is not eating well, PO intake 0-25. Pt agrees to chocolate Ensure Enlive TIDWM to meet protein needs to support wound healing post-op, notified MD. Recommend MVI/B12 w/ gastric bypass surgery hx; consider IM B12 IF jamin-en--y per MD, d/w XIOMARA. LBNicholas 07/25. Will continue to monitor PO intake as diet advances and ONS acceptance. Rec: 1. advance diet per MD to regular 2. Chocolate Ensure Enlive TIDWM 3. bowel care as needed 4. MVI/B12 w/ gastric bypass surgery hx; consider IM B12 IF jamin-en--y per MD 5. wt per rx Addendum: 07/26/19 at 1609 by Wing Konrad FORMAN Amended: Links added. Addendum: 07/26/19 at [address] [facility]
[2019-07-26] MEDS: piperacillin/tazo 4.5gm/100ml 100 ML IV SCH (16:36)
[2019-07-26] MEDS: normal saline 500ml IV soln 500 ML IV SCH (16:38)
--- NOTE | 2019-07-26 16:41 | NUR ---
reviewed student nurse charting
[2019-07-26] MEDS ORDERED: lactose-reduced food (Ensure Enlive) - 237ml bottle PO SCH (18:00)
--- NOTE | 2019-07-26 19:07 | NUR ---
Patient in room [facility] 349. I have received report from Heena SOLANO and had the opportunity to ask questions and assume patient care.
[2019-07-26 20:00] VITALS: BP 125/68
[2019-07-26] MEDS ORDERED: VANCOMYCIN LEVEL IV ONE (21:30)
[2019-07-27] VITALS (18 sets, daily range): BP systolic 120–146; BP diastolic 54–81
[2019-07-27] MEDS: HYDROmorphone inj. 0.5 MG/0.5 ML DISP.SYRIN IV PRN ×4 (01:45→22:00)
[2019-07-27] MEDS: piperacillin/tazo 4.5gm/100ml 100 ML IV SCH ×4 (01:53→23:19)
[2019-07-27] MEDS: oxyCODONE/APAP 10/325mg tablet PO PRN ×5 (04:37→23:19)
--- NOTE | 2019-07-27 06:25 | NUR ---
Patient in room [facility] 349. I have received report from Magali SOLANO and had the opportunity to ask questions and assume patient care.
--- NOTE | 2019-07-27 06:36 | NUR ---
Problems reprioritized. Patient report given, questions answered & plan of care reviewed with Mercedes SOLANO.
--- NOTE | 2019-07-27 07:07 | NUR ---
Received report from XIOMARA Long.
[2019-07-27] MEDS: heparin, porcine 5000 units/ml vial SQ SCH ×2 (08:00→19:20)
[2019-07-27 08:19] LABS: BASOPHILS % (AUTO) 0.2 % (0-1); EOSINOPHILS % (AUTO) 0.1 % (0-6); MONOCYTES # (AUTO) 0.4 X10'3 (0-0.9)
[2019-07-27 08:21] LABS: HEMATOCRIT 26.8 % (35.0-45.0); LYMPHOCYTES # (AUTO) 0.9 X10'3 (1.1-4.8); LYMPHOCYTES % (AUTO) 8.3 % (21-51); MEAN CORPUSCULAR HEMOGLOBIN 29.9 PG (27.0-31.0); MEAN CORPUSCULAR HGB CONC 33.4 g/dL (33.0-36.5); MEAN CORPUSCULAR VOLUME 89.5 FL (78-98); MEAN PLATELET VOLUME 7.9 FL (7.4-10.4); MONOCYTES % (AUTO) 3.7 % (2-12); NEUTROPHILS # (AUTO) 9.6 X10'3 (1.8-7.7); NEUTROPHILS % (AUTO) 87.7 % (42-75); PLATELET COUNT 602 X10'3 (140-440); RED CELL DISTRIBUTION WIDTH 14.4 % (11.5-14.5); WHITE BLOOD COUNT 10.9 X10'3 (4.5-11.0)
[2019-07-27] MEDS: lactobacillus rhamnosus 10,000 MMU CELLS/CAPSULE PO SCH ×2 (08:28→19:18)
[2019-07-27] MEDS: multivitamins, therapeutics tablet PO SCH (08:29)
[2019-07-27] MEDS: cyanocobalamin 500mcg tablet PO SCH (08:29)
[2019-07-27] MEDS: atenolol 50mg tablet PO SCH (08:31)
[2019-07-27 09:13] LABS: ALBUMIN 1.3 G/DL (3.4-5.0); ANION GAP 15 (8-16); BLOOD UREA NITROGEN 7 MG/DL (7-18); BUN/CREATININE RATIO 11.9 (6.6-38.0); CALCIUM 8.1 MG/DL (8.5-10.1); CHLORIDE 106 MMOL/L (99-107); CREATININE 0.59 MG/DL (0.40-0.90); GLUCOSE 90 MG/DL (70-104); POTASSIUM 3.4 MMOL/L (3.5-5.1); SODIUM 139 MMOL/L (135-145); TOTAL CARBON DIOXIDE 17.8 MMOL/L (24-32); eGFR > 90 ML/MIN
[2019-07-27 10:41] LABS: PARTIAL THROMBOPLASTIN TIME 28 SECONDS (22-32)
[2019-07-27 10:43] LABS: ALANINE AMINOTRANSFERASE 15 U/L (12-78); ALBUMIN 1.2 G/DL (3.4-5.0); ALBUMIN/GLOBULIN RATIO 0.3 (1.1-1.5); ALKALINE PHOSPHATASE 69 IU/L (46-116); ASPARTATE AMINO TRANSFERASE 15 U/L (10-37); BILIRUBIN,TOTAL 0.3 MG/DL (0.1-1.0); BLOOD UREA NITROGEN 6 MG/DL (7-18); BUN/CREATININE RATIO 10.7 (6.6-38.0); CALCIUM 7.9 MG/DL (8.5-10.1); CHLORIDE 106 MMOL/L (99-107); CREATININE 0.56 MG/DL (0.40-0.90); GLUCOSE 91 MG/DL (70-104); POTASSIUM 3.5 MMOL/L (3.5-5.1); TOTAL CARBON DIOXIDE 21.9 MMOL/L (24-32); TOTAL PROTEIN 5.6 G/DL (6.4-8.2); eGFR > 90 ML/MIN
[2019-07-27 10:44] LABS: ANION GAP 11 (8-16); SODIUM 139 MMOL/L (135-145)
--- NOTE | 2019-07-27 11:02 | NUR ---
Student Medication Administration: For this medication-pass time frame, all medication were reviewed, dispensed, administered and documented per hospital policy by Yamilet community health nursing director.
--- NOTE | 2019-07-27 11:02 | NUR ---
Student documentation: I have reviewed and agree with all interventions, assessments performed and documented by Yamilet, nursing instructor.
--- NOTE | 2019-07-27 11:27 | NUR ---
Gave care of pt over to XIOMARA Long.
--- NOTE | 2019-07-27 13:52 | NUR ---
patient seen by Dr bonner, is for surgery 1530hrs. wound vac cannister changed. patient asking for pain relief every time staff go in room, for chronic back pain. DR hernández. medicating as per EMAR. will continue to monitor.
[2019-07-27] MEDS ORDERED: ondansetron/PF 4mg/2ml inj IV PRN (14:40)
[2019-07-27] MEDS ORDERED: labetalol 20mg/4ml (5mg/ml) syringe IV PRN (14:40)
[2019-07-27] MEDS ORDERED: morphine 4 MG/ML inj SYRINge IV PRN ×2 (14:40)
[2019-07-27] MEDS ORDERED: hydrALAZINE 20mg/ml inj. IV PRN (14:40)
[2019-07-27] MEDS ORDERED: ringers solution, lacted 1,000 ML IV SCH (14:40)
[2019-07-27] MEDS ORDERED: fentaNYL/PF 50MCG/1 ML 2ML syringe IV PRN ×2 (14:40)
[2019-07-27] MEDS ORDERED: BUPIVAcaine/PF 2.5 mg/ml (0.25%) 30ml vial ONE (16:28)
[2019-07-27] MEDS ORDERED: fentaNYL/PF 50MCG/1 ML 2ML syringe ONE (16:33)
[2019-07-27] MEDS ORDERED: etomidate 2mg/ml inj. ONE (16:36)
[2019-07-27] MEDS ORDERED: succinylcholine 20mg/ml inj IV ONE (16:36)
--- NOTE | 2019-07-27 17:16 | NUR ---
Received from OR via , accompanied by Anesthesiologist DR TOPETE and report given by Anesthesiolgist. AWAKENS TO VOICE. VITALS DRESSING DI.TOYA PAIN.
[2019-07-27] MEDS: normal saline 500ml IV soln 500 ML IV SCH (17:27)
--- NOTE | 2019-07-27 17:30 | NUR ---
Patient in room [facility] 349. I have received report from Mike SOLANO and had the opportunity to ask questions and assume patient care. Patient appears stable VSS. report given to Shira Daniel RN
--- NOTE | 2019-07-27 17:51 | NUR ---
Patient in room [facility] 349. I have received report from Mike and had the opportunity to ask questions and assume patient care. Patient arrived back on unit in stable condition. Post op VS initated. wound vac in place.
--- NOTE | 2019-07-27 17:56 | NUR ---
Report called to receiving nurse. Transferred via BED Belongings . Special Issues communicated to receiving nurse. AWAKE AND ORIENTED. VITALS STABLE. DRESSING DI. STATES PAIN IMPROVING. TO SURGICAL RM 349B AT THIS TIME.
--- NOTE | 2019-07-27 18:42 | NUR ---
Patient in room [facility] 349. I have received report from XIOMARA Long and had the opportunity to ask questions and assume patient care.
[2019-07-27] MEDS: normal saline 1000ml 1,000 ML IV SCH (19:33)
[2019-07-28] MEDS: HYDROmorphone inj. 0.5 MG/0.5 ML DISP.SYRIN IV PRN ×4 (02:04→22:22)
[2019-07-28] MEDS: oxyCODONE/APAP 10/325mg tablet PO PRN ×4 (03:38→17:31)
--- NOTE | 2019-07-28 06:20 | NUR ---
Problems reprioritized. Patient report given, questions answered & plan of care reviewed with XIOMARA Long.
--- NOTE | 2019-07-28 06:35 | NUR ---
Patient in room [facility] 349. I have received report from ALEAH Daniel RN and had the opportunity to ask questions and assume patient care.
[2019-07-28 07:00] VITALS: BP 135/73
[2019-07-28] MEDS: lactobacillus rhamnosus 10,000 MMU CELLS/CAPSULE PO SCH ×2 (07:26→19:16)
[2019-07-28] MEDS: multivitamins, therapeutics tablet PO SCH (07:26)
[2019-07-28] MEDS: atenolol 50mg tablet PO SCH (07:28)
[2019-07-28] MEDS: heparin, porcine 5000 units/ml vial SQ SCH ×2 (07:29→19:16)
[2019-07-28] MEDS: cyanocobalamin 500mcg tablet PO SCH (07:30)
[2019-07-28] MEDS: piperacillin/tazo 4.5gm/100ml 100 ML IV SCH ×3 (07:31→23:33)
[2019-07-28 11:00] VITALS: BP 149/78
[2019-07-28 11:43] LABS: ALANINE AMINOTRANSFERASE 10 U/L (12-78); ALBUMIN 1.2 G/DL (3.4-5.0); ALBUMIN/GLOBULIN RATIO 0.3 (1.1-1.5); ALKALINE PHOSPHATASE 63 IU/L (46-116); ANION GAP 10 (8-16); ASPARTATE AMINO TRANSFERASE 13 U/L (10-37); BILIRUBIN,TOTAL 0.3 MG/DL (0.1-1.0); BLOOD UREA NITROGEN 4 MG/DL (7-18); CALCIUM 7.7 MG/DL (8.5-10.1); CHLORIDE 107 MMOL/L (99-107); CREATININE 0.57 MG/DL (0.40-0.90); GLUCOSE 103 MG/DL (70-104); POTASSIUM 3.3 MMOL/L (3.5-5.1); SODIUM 139 MMOL/L (135-145); TOTAL CARBON DIOXIDE 21.9 MMOL/L (24-32); TOTAL PROTEIN 5.1 G/DL (6.4-8.2); eGFR > 90 ML/MIN
[2019-07-28] MEDS: normal saline 1000ml 1,000 ML IV SCH (11:50)
[2019-07-28] MEDS: furosemide 20 MG/2 ML vial IV SCH ×2 (12:06→19:06)
[2019-07-28] MEDS: mag hydrox/Alum hydrox/simeth 30ml oral suspension PO PRN (12:12)
[2019-07-28 12:51] LABS: BASOPHILS % (AUTO) 0.2 % (0-1); EOSINOPHILS % (AUTO) 0.2 % (0-6); HEMATOCRIT 27.5 % (35.0-45.0); HEMOGLOBIN 9.2 g/dl (12.0-16.0); LYMPHOCYTES % (AUTO) 8.3 % (21-51); MEAN CORPUSCULAR HEMOGLOBIN 29.5 PG (27.0-31.0); MEAN CORPUSCULAR HGB CONC 33.4 g/dL (33.0-36.5); MEAN CORPUSCULAR VOLUME 88.5 FL (78-98); MONOCYTES # (AUTO) 0.6 X10'3 (0-0.9); MONOCYTES % (AUTO) 5.3 % (2-12); NEUTROPHILS # (AUTO) 10.2 X10'3 (1.8-7.7); PLATELET COUNT 698 X10'3 (140-440); RED BLOOD COUNT 3.11 X10'6 (4.20-5.60); RED CELL DISTRIBUTION WIDTH 14.1 % (11.5-14.5); WHITE BLOOD COUNT 11.9 X10'3 (4.5-11.0)
[2019-07-28] MEDS: methyl salicylate/menthol cream 85gm TP SCH ×2 (13:00→19:29)
--- NOTE | 2019-07-28 14:12 | NUR ---
WOUND VAC EDUCATION PROVIDED BY WOUND CARE 1. Patient instructed to call the Wound Center or their Home Health Agency immediately if: * They notice a change in the color or amount of the fluid in the canister. * Their wound looks more red than usual or has a foul smell. * The skin around their wound looks reddened or irritated. * The dressing feels loose or appears to be loose. * They experience any increase or changes in their pain. * The alarm will not turn off. 2. Patient instructed that they should not be disconnected from suction for more than 2 hours at a time. * If they are not able to get the suction back on, they need to remove the dressing and take all of the foam out of the wound. * Then moisten sterile gauze with normal saline and place on/in the wound. * Change the dressing once a day until arrangements have been made to replace the wound vac dressing. 3. Patient instructed to turn the wound vac machine OFF and call 911 or go to the ED immediately if their canister fills rapidly with blood. 4. If any of these occur while in the hospital tell a nurse immediately. Addendum: 07/28/19 at 1412 by Heladio Loyd RN Amended: Links added.
--- NOTE | 2019-07-28 16:30 | NUR ---
Dilaudid was scanned but noticed it did not enter in emar for patient. was given at 1605. Night RN Shira S staff made aware for next dosing
--- NOTE | 2019-07-28 17:59 | NUR ---
Bella not available per pharmacy will get in am.
[2019-07-28] MEDS: normal saline 500ml IV soln 500 ML IV SCH (18:27)
--- NOTE | 2019-07-28 18:27 | NUR ---
Problems reprioritized. Patient report given, questions answered & plan of care reviewed with Shira SOLANO.
--- NOTE | 2019-07-28 18:33 | NUR ---
Patient in room [facility] 349. I have received report from XIOMARA Long and had the opportunity to ask questions and assume patient care.
[2019-07-28] MEDS ORDERED: magnesium Cl slow-release 64mg tablet PO PRN (18:55)
[2019-07-28] MEDS ORDERED: potassium Cl 20 mEq SR tablet PO PRN (18:55)
[2019-07-28] MEDS ORDERED: potassium CL 10mEq/100ml bag 100 ML IV PRN ×2 (18:55)
[2019-07-28] MEDS ORDERED: magnesium 2GM in 50ml NS 50 ML IV PRN (18:55)
[2019-07-28] MEDS ORDERED: magnesium 4gm in 100ml NS 100 ML IV PRN (18:55)
--- NOTE | 2019-07-28 19:06 | NUR ---
Patient refusing lasix. Wants to sleep.
[2019-07-28] MEDS: K and/or MAG REPLACEMENT MC SCH (19:07)
[2019-07-28] MEDS: loperamide 2mg capsule PO PRN (19:16)
[2019-07-28] MEDS: Melatonin 3mg tablet PO SCH (19:18)
[2019-07-28 20:00] VITALS: BP 135/65
[2019-07-28] MEDS ORDERED: Melatonin 3mg tablet PO SCH (21:00)
[2019-07-29] VITALS: BP 134/71
[2019-07-29] MEDS: oxyCODONE/APAP 10/325mg tablet PO PRN ×4 (00:51→23:28)
[2019-07-29] MEDS: HYDROmorphone inj. 0.5 MG/0.5 ML DISP.SYRIN IV PRN ×4 (04:25→19:22)
[2019-07-29] MEDS: loperamide 2mg capsule PO PRN (04:26)
--- NOTE | 2019-07-29 06:41 | NUR ---
Problems reprioritized. Patient report given, questions answered & plan of care reviewed with XIOMARA March.
[2019-07-29 07:32] VITALS: BP 130/60
[2019-07-29] MEDS: furosemide 20 MG/2 ML vial IV SCH ×2 (07:54→19:25)
[2019-07-29] MEDS: heparin, porcine 5000 units/ml vial SQ SCH ×2 (07:54→19:20)
[2019-07-29] MEDS: cyanocobalamin 500mcg tablet PO SCH (07:55)
[2019-07-29] MEDS: lactobacillus rhamnosus 10,000 MMU CELLS/CAPSULE PO SCH ×2 (07:55→19:19)
[2019-07-29] MEDS: multivitamins, therapeutics tablet PO SCH (07:55)
[2019-07-29] MEDS: atenolol 50mg tablet PO SCH (07:55)
[2019-07-29] MEDS: piperacillin/tazo 4.5gm/100ml 100 ML IV SCH ×3 (07:56→23:31)
[2019-07-29] MEDS: normal saline 1000ml 1,000 ML IV SCH ×2 (07:57→23:34)
[2019-07-29] MEDS: methyl salicylate/menthol cream 85gm TP SCH ×3 (08:00→20:57)
[2019-07-29] MEDS: K and/or MAG REPLACEMENT MC SCH ×2 (08:00→20:00)
[2019-07-29 08:25] LABS: CHLORIDE 103 MMOL/L (99-107); SODIUM 139 MMOL/L (135-145)
[2019-07-29 08:32] LABS: ALBUMIN 1.3 G/DL (3.4-5.0); ANION GAP 13 (8-16); BLOOD UREA NITROGEN 5 MG/DL (7-18); CALCIUM 7.7 MG/DL (8.5-10.1); GLUCOSE 106 MG/DL (70-104); TOTAL CARBON DIOXIDE 24.1 MMOL/L (24-32)
--- NOTE | 2019-07-29 08:32 | NUR ---
PAGER ID: [phone] MESSAGE: Paris Sorenson [id number] k critical = 3.0 Anca [id number]
[2019-07-29 08:37] LABS: BUN/CREATININE RATIO 9.4 (6.6-38.0); CREATININE 0.53 MG/DL (0.40-0.90); eGFR > 90 ML/MIN
[2019-07-29 08:38] LABS: EOSINOPHILS # (AUTO) 0.1 X10'3 (0-0.9); MEAN CORPUSCULAR HEMOGLOBIN 29.5 PG (27.0-31.0)
[2019-07-29 08:39] LABS: BASOPHILS % (AUTO) 0.3 % (0-1); EOSINOPHILS % (AUTO) 0.5 % (0-6); HEMATOCRIT 26.8 % (35.0-45.0); LYMPHOCYTES % (AUTO) 9.3 % (21-51); MEAN CORPUSCULAR HGB CONC 33.4 g/dL (33.0-36.5); MEAN CORPUSCULAR VOLUME 88.5 FL (78-98); MEAN PLATELET VOLUME 7.9 FL (7.4-10.4); MONOCYTES # (AUTO) 0.6 X10'3 (0-0.9); MONOCYTES % (AUTO) 5.1 % (2-12); NEUTROPHILS # (AUTO) 9.6 X10'3 (1.8-7.7); NEUTROPHILS % (AUTO) 84.8 % (42-75); PLATELET COUNT 721 X10'3 (140-440); RED BLOOD COUNT 3.03 X10'6 (4.20-5.60); RED CELL DISTRIBUTION WIDTH 14.4 % (11.5-14.5); WHITE BLOOD COUNT 11.3 X10'3 (4.5-11.0)
[2019-07-29] MEDS: potassium Cl 20 mEq SR tablet PO PRN ×2 (08:53→15:02)
--- NOTE | 2019-07-29 09:00 | NUR ---
Wound vac found to have a leak after pt. walked this AM. Break nurse wanting to relieve this RN. Charge made aware of leak- paged wound care. Wound care came to change wound Vac.
--- NOTE | 2019-07-29 09:17 | NUR ---
MD BENITO AWARE OF CRITICAL K. REPLACING PER PROTOCOL. NO NEW ORDERS AT THIS TIME.
[2019-07-29] MEDS ORDERED: HYDROmorphone 1 mg/ml syringe IV ONE (10:25)
[2019-07-29 11:00] VITALS: BP 140/72
--- NOTE | 2019-07-29 11:25 | NUR ---
Gave report to Abby SOLANO.
--- NOTE | 2019-07-29 14:59 | NUR ---
was not able to admin kandy means. medication not available, called pharmacy and they don't have it.
--- NOTE | 2019-07-29 15:34 | NUR ---
Reassessment: Pt continues on full liquid diet documented with average 25% PO intake with some refusals. ONS still pending MD verification. Attempted visit with pt at bedside however pt was sleeping and did not wake with verbal cues. Written protein education with RD contact information left at patient's bedside. Pt s/p further wound debridement and continues with wound VAC, possibly to need further debridement per MD notes. LB 07/28. Will continue to follow closely. Rec: 1. advance diet to regular as medically indicated 2. Chocolate Ensure Enlive TIDWM 3. bowel care as needed 4. MVI/B12 w/ gastric bypass surgery hx; consider IM B12 IF jamin-en--y per MD 5. wt per rx Addendum: 07/29/19 at [address] Amended: Links added.
[2019-07-29 18:00] VITALS: BP 105/52
--- NOTE | 2019-07-29 18:34 | NUR ---
Patient in room TRAVIS 349. I have received report from XIOMARA Mora and had the opportunity to ask questions and assume patient care.
--- NOTE | 2019-07-29 18:42 | NUR ---
Problems reprioritized. Patient report given, questions answered & plan of care reviewed with ELVI SOLANO.
[2019-07-29] MEDS: Melatonin 3mg tablet PO SCH (20:52)
--- NOTE | 2019-07-29 20:58 | NUR ---
bengay is not available per pharmacy
[2019-07-29] MEDS: normal saline 500ml IV soln 500 ML IV SCH (23:35)
--- NOTE | 2019-07-29 23:40 | NUR ---
Patient refused her last potassium pill
[2019-07-30] VITALS: BP 125/65
[2019-07-30] MEDS: HYDROmorphone inj. 0.5 MG/0.5 ML DISP.SYRIN IV PRN ×2 (02:37→08:02)
[2019-07-30] MEDS: oxyCODONE/APAP 10/325mg tablet PO PRN ×3 (05:27→15:11)
[2019-07-30 06:15] LABS: BASOPHILS % (AUTO) 0.2 % (0-1); EOSINOPHILS # (AUTO) 0.1 X10'3 (0-0.9); HEMOGLOBIN 8.2 g/dl (12.0-16.0); NEUTROPHILS # (AUTO) 8.9 X10'3 (1.8-7.7); NEUTROPHILS % (AUTO) 85.4 % (42-75); WHITE BLOOD COUNT 10.4 X10'3 (4.5-11.0)
[2019-07-30 06:17] LABS: EOSINOPHILS % (AUTO) 0.6 % (0-6); HEMATOCRIT 24.3 % (35.0-45.0); LYMPHOCYTES % (AUTO) 9.5 % (21-51); MEAN CORPUSCULAR HEMOGLOBIN 30.3 PG (27.0-31.0); MEAN CORPUSCULAR HGB CONC 33.7 g/dL (33.0-36.5); MEAN CORPUSCULAR VOLUME 89.8 FL (78-98); MEAN PLATELET VOLUME 7.5 FL (7.4-10.4); MONOCYTES # (AUTO) 0.4 X10'3 (0-0.9); MONOCYTES % (AUTO) 4.3 % (2-12); PLATELET COUNT 643 X10'3 (140-440); RED CELL DISTRIBUTION WIDTH 14.1 % (11.5-14.5)
[2019-07-30 06:27] LABS: ALBUMIN 1.2 G/DL (3.4-5.0); ANION GAP 9 (8-16); BLOOD UREA NITROGEN 5 MG/DL (7-18); BUN/CREATININE RATIO 8.6 (6.6-38.0); CALCIUM 7.8 MG/DL (8.5-10.1); CHLORIDE 105 MMOL/L (99-107); CREATININE 0.58 MG/DL (0.40-0.90); GLUCOSE 87 MG/DL (70-104); MAGNESIUM 1.5 MG/DL (1.5-2.4); POTASSIUM 3.6 MMOL/L (3.5-5.1); SODIUM 141 MMOL/L (135-145); TOTAL CARBON DIOXIDE 27.5 MMOL/L (24-32); eGFR > 90 ML/MIN
--- NOTE | 2019-07-30 06:42 | NUR ---
Problems reprioritized. Patient report given, questions answered & plan of care reviewed with Jose Guadalupe Bergman RN.
--- NOTE | 2019-07-30 06:44 | NUR ---
Patient in room TRAVIS 349. I have received report from XIOMARA Goodwin and had the opportunity to ask questions and assume patient care.
[2019-07-30 07:00] VITALS: BP 161/85
[2019-07-30] MEDS: piperacillin/tazo 4.5gm/100ml 100 ML IV SCH (08:00)
[2019-07-30] MEDS: cyanocobalamin 500mcg tablet PO SCH (08:00)
[2019-07-30] MEDS: multivitamins, therapeutics tablet PO SCH (08:00)
[2019-07-30] MEDS: methyl salicylate/menthol cream 85gm TP SCH ×2 (08:00→13:00)
[2019-07-30] MEDS: K and/or MAG REPLACEMENT MC SCH (08:00)
[2019-07-30] MEDS: atenolol 50mg tablet PO SCH (08:01)
[2019-07-30] MEDS: lactobacillus rhamnosus 10,000 MMU CELLS/CAPSULE PO SCH (08:01)
[2019-07-30] MEDS: heparin, porcine 5000 units/ml vial SQ SCH (08:01)
[2019-07-30] MEDS: furosemide 20 MG/2 ML vial IV SCH (08:01)
[2019-07-30] MEDS ORDERED: LIDOcaine 5% patch TP SCH (10:45)
[2019-07-30 11:00] VITALS: BP 132/74
--- NOTE | 2019-07-30 14:46 | NUR ---
Problems reprioritized. Patient report given, questions answered & plan of care reviewed with XIOMARA Ryder at [facility].
--- NOTE | 2019-07-30 19:32 | NUR ---
Pt discharged to [facility] at 1525. All belongings sent with patient. Pt transported via ambulance by EMT's.
== END 2019-07-30 15:25 | DRG 792 ==
LOC: ER 10:21 → ED HOLD 14:06 → SUR 3N 15:32 → CICU 2S 20:51 → SUR 3N 07-23 10:56 → UNDODISIN 07-30 15:28
PROVIDERS: ADMIT Family Medicine; ATTEND Family Medicine
PROC: 0WPF0JZ Removal of Synthetic Substitute from Abdominal Wall, Open Approach (ICD-10-PCS; 2019-07-22)
PROC: 0JB80ZZ Excision of Abdomen Subcutaneous Tissue and Fascia, Open Approach (ICD-10-PCS; principal; 2019-07-22 18:57)
PROC: 0DQA0ZZ Repair Jejunum, Open Approach (ICD-10-PCS; 2019-07-27)
DX: T81.30XA Disruption of wound, unspecified, initial encounter (principal); M72.6 Necrotizing fasciitis; E43 Unspecified severe protein-calorie malnutrition; A41.9 Sepsis, unspecified organism; K63.2 Fistula of intestine; E78.5 Hyperlipidemia, unspecified; I10 Essential (primary) hypertension; M54.9 Dorsalgia, unspecified; G47.00 Insomnia, unspecified; L03.311 Cellulitis of abdominal wall; G89.4 Chronic pain syndrome; R19.7 Diarrhea, unspecified; D47.3 Essential (hemorrhagic) thrombocythemia; E87.6 Hypokalemia; D64.9 Anemia, unspecified; B95.2 Enterococcus as the cause of diseases classified elsewhere; B95.5 Unspecified streptococcus as the cause of diseases classified elsewhere; B96.20 Unspecified Escherichia coli [E. coli] as the cause of diseases classified elsewhere; E66.01 Morbid (severe) obesity due to excess calories; Z68.36 Body mass index [BMI] 36.0-36.9, adult; Z85.43 Personal history of malignant neoplasm of ovary; Z88.0 Allergy status to penicillin; Z88.1 Allergy status to other antibiotic agents; Z90.710 Acquired absence of both cervix and uterus; Z98.84 Bariatric surgery status; Z90.49 Acquired absence of other specified parts of digestive tract; Z79.899 Other long term (current) drug therapy; S36.498A Other injury of other part of small intestine, initial encounter
CPT/HCPCS: 36415; 71045; 74176; 76937; 80048; 80053; 80202; 81001; 82948; 83605; 83735; 84145; 85025; 85610; 85730; 87040; 87070; 87075; 87076; 87077; 87081; 87102; 87186; 93005; 94640; 94760; 96365; 96375; 97110; 97112; 97116; 97161; 97530; 99285; A4618; A6550; A7000; C1758; C9399; G0378; J0330; J0692; J1170; J1644; J1940; J1956; J2001; J2175; J2250; J2270; J2405; J2543; J2704; J3010; J3370; J3420; J3490; J7030; J7040; J7120; Q9967

== ENCOUNTER 2019-08-12 06:06 | Emergency (ER) | payer MEDICAID ==
[~2019-08-12] VITALS: Ht 154.9 cm; Wt 91.4 kg
[~2019-08-12 06:06] MED LIST changes: -ATEN-169 PO; +ATEN100T6 PO; +CYAN-51 PO; +FURO40TA4 PO; +MULT-933 PO; +POTA20TA19 PO
--- NOTE | 2019-08-12 06:28 | NUR ---
Spoke with RN from [facility] and she reports that pt. has had 2 doses of gastrografin and has 1 more dose (10mL) prior to CT scan.
[2019-08-12] MEDS ORDERED: morphine 10mg/ml inj. IV ONE (08:30)
[2019-08-12] MEDS ORDERED: LORazepam 2 mg/ml vial IV ONE (08:30)
[2019-08-12] MEDS ORDERED: diatr meglu/diatrizoate 30ml oral sol.-(3 dose) bottle PO ONE (09:00)
[2019-08-12 09:02] LABS: BASOPHILS % (AUTO) 0.5 % (0-1); EOSINOPHILS # (AUTO) 0.3 X10'3 (0-0.9); EOSINOPHILS % (AUTO) 3.8 % (0-6); HEMOGLOBIN 10.6 g/dl (12.0-16.0); LYMPHOCYTES # (AUTO) 1.9 X10'3 (1.1-4.8); LYMPHOCYTES % (AUTO) 28.6 % (21-51); MEAN CORPUSCULAR HEMOGLOBIN 30.7 PG (27.0-31.0); MEAN CORPUSCULAR HGB CONC 34.2 g/dL (33.0-36.5); MEAN CORPUSCULAR VOLUME 89.7 FL (78-98); MONOCYTES # (AUTO) 0.5 X10'3 (0-0.9); MONOCYTES % (AUTO) 7.5 % (2-12); NEUTROPHILS # (AUTO) 3.9 X10'3 (1.8-7.7); NEUTROPHILS % (AUTO) 59.6 % (42-75); PLATELET COUNT 430 X10'3 (140-440); RED BLOOD COUNT 3.46 X10'6 (4.20-5.60); RED CELL DISTRIBUTION WIDTH 15.1 % (11.5-14.5); WHITE BLOOD COUNT 6.5 X10'3 (4.5-11.0)
[2019-08-12 09:09] LABS: ALANINE AMINOTRANSFERASE 22 U/L (12-78); ALBUMIN 2.6 G/DL (3.4-5.0); ALBUMIN/GLOBULIN RATIO 0.5 (1.1-1.5); ALKALINE PHOSPHATASE 120 IU/L (46-116); ANION GAP 11 (8-16); ASPARTATE AMINO TRANSFERASE 18 U/L (10-37); BILIRUBIN,TOTAL 0.3 MG/DL (0.1-1.0); BLOOD UREA NITROGEN 18 MG/DL (7-18); BUN/CREATININE RATIO 27.3 (6.6-38.0); CALCIUM 9.4 MG/DL (8.5-10.1); CHLORIDE 99 MMOL/L (99-107); CREATININE 0.66 MG/DL (0.40-0.90); GLUCOSE 119 MG/DL (70-104); POTASSIUM 3.7 MMOL/L (3.5-5.1); SODIUM 136 MMOL/L (135-145); TOTAL CARBON DIOXIDE 25.9 MMOL/L (24-32); TOTAL PROTEIN 8.2 G/DL (6.4-8.2); eGFR > 90 ML/MIN
[2019-08-12] MEDS ORDERED: iohexol 300mg/ml 100ml inj. ONE (09:22)
[2019-08-12] MEDS ORDERED: morphine 4 MG/ML inj SYRINge IV ONE (11:30)
[2019-08-12 11:41] VITALS: BP 101/62
--- NOTE | 2019-08-12 12:43 | NUR ---
[facility] CALLED FOR TRANSPORT BACK TO [facility]. NO ETA AT THIS TIME
--- NOTE | 2019-08-12 12:49 | NUR ---
Break RN; Moist to dry dressing placed on patient's abdominal wound.
== END 2019-08-12 13:06 | disposition short-term general hospital (02) ==
LOC: ER 06:06
DX: S31.109A Unspecified open wound of abdominal wall, unspecified quadrant without penetration into peritoneal cavity, initial encounter (principal); Z79.899 Other long term (current) drug therapy; X58.XXXA Exposure to other specified factors, initial encounter; Y93.89 Activity, other specified; Y92.89 Other specified places as the place of occurrence of the external cause; Y99.8 Other external cause status
CPT/HCPCS: 36415; 74177; 80053; 83605; 85025; 96374; 96375; 96376; 99285; J2060; J2270; Q9963; Q9967

== ENCOUNTER 2019-08-16 12:36 | Emergency (ER) | payer MEDICAID ==
[~2019-08-16] VITALS: Ht 152.4 cm; Wt 91.4 kg
[2019-08-16] MEDS ORDERED: normal saline 1000ML IV soln IVB ONE (12:45)
[2019-08-16] MEDS ORDERED: HYDROcodone/acetaminophen 10/325mg tab PO ONE ×2 (12:55→15:00)
[2019-08-16] MEDS ORDERED: ibuprofen tablet 400 MG TABLET PO ONE (12:55)
--- NOTE | 2019-08-16 13:10 | NUR ---
Pt medicated as ordered for pain. Pt's IV fluid and lab work cancelled by Dr. Urrutia's. Pt is aware of the plan of care and discharge back to [facility] for further care.
--- NOTE | 2019-08-16 14:06 | NUR ---
Pt ambulatory with steady gait in the hallway. Pt is pending discharge/transfer back to [facility] for continued care. Pt has no complaints at this time.
--- NOTE | 2019-08-16 14:30 | NUR ---
Pt is ambulating in the hallway with her IV pole and inquiring about the ETA for transport back to [facility] and asking for additional pain medication.
[2019-08-16 16:52] VITALS: BP 108/57
== END 2019-08-16 16:30 | disposition short-term general hospital (02) ==
LOC: ER 12:37
DX: T81.30XA Disruption of wound, unspecified, initial encounter (principal); Z98.890 Other specified postprocedural states; Z91.030 Bee allergy status; Z79.899 Other long term (current) drug therapy; Y83.8 Other surgical procedures as the cause of abnormal reaction of the patient, or of later complication, without mention of misadventure at the time of the procedure; Y92.89 Other specified places as the place of occurrence of the external cause
CPT/HCPCS: 99284; 99285